=== PATIENT | male | born 1985 | race Caucasian/White ===

== ENCOUNTER 2017-08-26 13:25 | Emergency (ER) | payer SELFPAY ==
[2017-08-26 13:38] VITALS: O2SAT 98
--- NOTE | 2017-08-26 14:47 | C.PDOC ---
History Of Present Illness 31 year old male presents to the ED complaining of back pain for two weeks after lifting a bag of grass at work. Pain aggravated with certain movements. 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 He denies any urinary/bowel incontinence, abdominal pain, numbness, weakness, or tingling. He states he has not taken anything for the pain. 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 Limitations: no limitations Onset/Duration Of Symptoms: Days Current Symptoms Are (Timing): Still Present Quality Of Discomfort: "Pain" Associated Symptoms: denies: Incontinence, New Weakness, New Numbness Past Medical History Reviewed: Historical Data, Nursing Documentation, Vital Signs Vital Signs: Last Vital Signs Temp 99.6 F 08/26/17 15:00 Pulse 80 08/26/17 15:00 Resp 14 08/26/17 15:00 BP 129/83 08/26/17 15:00 Pulse Ox 98 08/26/17 15:53 - Medical History PMH: No Chronic Diseases Surgical History: No Surg Hx Family History: States: No Known Family Hx - Social History Hx Tobacco Use: No Hx Alcohol Use: No Hx Substance Use: No - Immunization History Hx Influenza Vaccination: No Review Of Systems Except As Marked, All Systems Reviewed And Found Negative. Genitourinary: Negative for: Incontinence Musculoskeletal: Positive for: Back Pain Neurological: Negative for: Weakness, Numbness Physical Exam - Physical Exam Appears: Non-toxic, No Acute Distress Skin: Normal Color, Warm, Dry Head: Atraumatic, Normacephalic Eye(s): bilateral: Normal Inspection, EOMI Nose: Normal Oral Mucosa: Moist Neck: Normal ROM, Supple Chest: Symmetrical Respiratory: Normal Breath Sounds, No Rales, No Rhonchi, No Wheezing Gastrointestinal/Abdominal: Soft, No Tenderness Back: No CVA Tenderness, No Vertebral Tenderness, Other (Paralumbar tenderness ) Extremity: Normal ROM Neurological/Psych: Oriented x3, Normal Speech, Normal Motor, Normal Sensation Gait: Steady ED Course And Treatment O2 Sat by Pulse Oximetry: 98 (RA) Pulse Ox Interpretation: Normal - Other Rad XR LS spine X-Ray: Viewed By Me, Read By Radiologist Interpretation: Accession No. : [id number]. Patient Name / ID : RADHA FORBES / [id number]. Exam Date : 08/26/2017 14:14:24 ( Approved ). Study Comment : Sex / Age : M / 31Y. Creator : Daniel Galarza MD. Dictator : Daniel Galarza MD. Golf Ball Molder : Electronic Engineering Draftsperson : Daniel Galarza MD. Approver2 : Report Date : 08/26/2017 15:50:12. My Comment : . Lumbar spine three views. History: Pain. Comparison: None available. Findings : Grade 2 anterolisthesis of L5 on S1 with apparent pars defects. Clinical correlation. Correlation with MRI may be helpful if clinically indicated. Mild retrolisthesis of L4 on L5. Loss of height of the T12, L1, and L2 vertebral bodies. Correlation with MRI may be helpful if clinically indicated. Inferior endplate concavities at the L3 and L4 vertebral body levels. Moderate fecal retention in the colon. Impression: Grade 2 anterolisthesis of L5 on S1 with apparent pars defects. Clinical correlation. Correlation with MRI may be helpful if clinically indicated. Mild retrolisthesis of L4 on L5. Loss of height of the T12, L1, and L2 vertebral bodies. Correlation with MRI may be helpful if clinically indicated. Inferior endplate concavities at the L3 and L4 vertebral body levels. Progress Note: Patient assessed and examined. Patient given Toradol 30mg IM. XR of LS spine ordered, results reviewed. On reassessment, patient is resting comfortably, with improvement of back pain. Patient remains afebrile, with no bony tenderness, extremity numbness or weakness, or abdominal pain. Patient is ambulatory in the emergency department with no signs of discomfort. Patient given Rx for Cyclobenzaprin and Naproxen. Patient was advised to follow up with physician/clinic in 1-2 days. Disposition - Disposition Disposition: HOME/ ROUTINE Disposition Time: 14:57 Condition: STABLE Additional Instructions: Connor cash o la clnica en 2-5 lawler sin falta, para mas evaluacin. Marana los medicamentos kayce indicado. Volver a la mulu de emergencia en cualquier momento si los sntomas persisten o empeoran. Prescriptions: Cyclobenzaprine [Cyclobenzaprine HCl] 10 mg PO TID 5 Days tab Naproxen [Naprosyn] 1 tab PO BID PRN #20 tab PRN Reason: Pain Instructions: Lumbar Muscle Strain (DC) Forms: [employer] (Wolof), Work Excuse Print Language: MALAY - Clinical Impression Clinical Impression: Lumbar sprain - PA / HAND INSPECTOR / Resident Statement MD/DO has reviewed & agrees with the documentation as recorded. - Scribe Statement The provider has reviewed the documentation as recorded by the Anuradhaibmeir Ac All medical record entries made by the Scribe were at my direction and personally dictated by me. I have reviewed the chart and agree that the record accurately reflects my personal performance of the history, physical exam, medical decision making, and the department course for this patient. I have also personally directed, reviewed, and agree with the discharge instructions and disposition.
[2017-08-26 15:00] VITALS: BP 129/83; PULSE 80; RESP 14; TEMP 99.6
--- NOTE | 2017-08-26 15:51 | RAD ---
Lumbar spine three views History: Pain. Comparison: None available. Findings: Grade 2 anterolisthesis of L5 on S1 with apparent pars defects. Clinical correlation. Correlation with MRI may be helpful if clinically indicated. Mild retrolisthesis of L4 on L5. Loss of height of the T12, L1, and L2 vertebral bodies. Correlation with MRI may be helpful if clinically indicated. Inferior endplate concavities at the L3 and L4 vertebral body levels. Moderate fecal retention in the colon. Impression: Grade 2 anterolisthesis of L5 on S1 with apparent pars defects. Clinical correlation. Correlation with MRI may be helpful if clinically indicated. Mild retrolisthesis of L4 on L5. Loss of height of the T12, L1, and L2 vertebral bodies. Correlation with MRI may be helpful if clinically indicated. Inferior endplate concavities at the L3 and L4 vertebral body levels.
== END 2017-08-26 15:07 | disposition home or self-care (01) ==
LOC: C.ER 13:25
DX: S33.5XXA Sprain of ligaments of lumbar spine, initial encounter (principal); X50.9XXA Other and unspecified overexertion or strenuous movements or postures, initial encounter; Y99.0 Civilian activity done for income or pay
CPT/HCPCS: 72100; 96372; 99283; J1885

== ENCOUNTER 2018-05-15 09:19 | Emergency (ER) | payer SELFPAY ==
[2018-05-15 09:37] VITALS: BP 136/76; PULSE 73; RESP 20; TEMP 98.2; O2SAT 96
--- NOTE | 2018-05-15 11:09 | C.PDOC ---
Time Seen by Provider: 05/15/18 10:44 Chief Complaint (Nursing): Cough, Cold, Congestion History Per: Patient Onset/Duration Of Symptoms: Days (1 week) Current Symptoms Are (Timing): Still Present Associated Symptoms: Sore Throat, Cough, Sputum, Nasal Congestion Severity: Moderate Additional History Per: Prior Records Past Medical History Reviewed: Historical Data, Nursing Documentation, Vital Signs Vital Signs: Last Vital Signs Temp 98.2 F 05/15/18 09:32 Pulse 73 05/15/18 09:32 Resp 20 05/15/18 09:32 BP 136/76 05/15/18 09:32 Pulse Ox 96 05/15/18 09:32 - Medical History PMH: No Chronic Diseases Surgical History: No Surg Hx Family History: States: Unknown Family Hx - Social History Hx Tobacco Use: No Hx Alcohol Use: No Hx Substance Use: No - Immunization History Hx Tetanus Toxoid Vaccination: No Hx Influenza Vaccination: No Hx Pneumococcal Vaccination: No Review Of Systems Except As Marked, All Systems Reviewed And Found Negative. Constitutional: Negative for: Weakness ENT: Positive for: Ear Pain, Nose Congestion Cardiovascular: Negative for: Chest Pain Respiratory: Positive for: Cough. Negative for: Shortness of Breath, Hemoptysis Gastrointestinal: Negative for: Vomiting, Abdominal Pain, Diarrhea Musculoskeletal: Negative for: Neck Pain Skin: Negative for: Rash Neurological: Negative for: Weakness Physical Exam - Physical Exam Appears: Non-toxic, No Acute Distress Skin: Normal Color, Warm, Dry, No Rash Head: Atraumatic, Normacephalic Eye(s): bilateral: PERRL, EOMI Ear(s): Bilateral: Normal Throat: Normal Neck: Normal ROM, Supple Cardiovascular: Rhythm Regular Respiratory: Normal Breath Sounds, No Accessory Muscle Use Gastrointestinal/Abdominal: Soft, No Tenderness Extremity: Normal ROM Neurological/Psych: Oriented x3, Normal Speech, Normal Cognition ED Course And Treatment O2 Sat by Pulse Oximetry: 96 Pulse Ox Interpretation: Normal Disposition Counseled Patient/Family Regarding: Diagnosis, Need For Followup, Rx Given - Disposition Referrals: [facility] [Outside] Disposition: HOME/ ROUTINE Disposition Time: 11:08 Condition: STABLE Additional Instructions: Follow up in the clinic for further evaluation and treatment. Return to the ER if you develop shortness of breath, high fever, chest pain, worsening of symptoms or if you have any other concerns. Prescriptions: Guaifenesin/Pseudoephedrne HCl [Mucinex D ER 1,200-120 mg Tab] 1 each PO Q12 PRN #20 tab.er.12h PRN Reason: Nasal Congestion Promethazine/Dextromethorphan [Promethazine-Dm Syrup] 5 ml PO Q4 PRN #1 syrup PRN Reason: Cough And Congestion Instructions: Upper Respiratory Infection (ED) Forms: [employer] (Libyan) Print Language: QATARI - Clinical Impression Clinical Impression: Upper respiratory infection
== END 2018-05-15 11:16 | disposition home or self-care (01) ==
LOC: C.ER 09:19
DX: J06.9 Acute upper respiratory infection, unspecified (principal)